=== PATIENT | male | born 1990 | race Hispanic/Latino ===

== ENCOUNTER 2024-12-19 03:24 | Emergency (ER) | payer SELFPAY ==
[2024-12-19] MEDS ORDERED: LIDOCAINE 1% 20 ML MDV ONE (04:06)
[2024-12-19] MEDS ORDERED: TDAP (DIPHTH,PERTUSS(ACELL),TET VAC) 0.5 ML VIAL IMVAC ONE (04:06)
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
[2024-12-19 05:48] VITALS: BP 124/77; O2SAT 98
== END 2024-12-19 04:49 | disposition home or self-care (01) ==
LOC: ER 03:24
PROC: 0HQ0XZZ Repair Scalp Skin, External Approach (ICD-10-PCS; principal; 2024-12-19)
DX: S01.01XA Laceration without foreign body of scalp, initial encounter (principal); V57.6XXA Passenger in pick-up truck or van injured in collision with fixed or stationary object in traffic accident, initial encounter
CPT/HCPCS: 12001; 90715; 96372; 99284; J2003